=== PATIENT | female | born 1925 | race Caucasian/White ===

== ENCOUNTER 2017-02-18 17:21 | Emergency (ER) | payer MEDICARE, OTHER ==
[~2017-02-18] VITALS: Ht 154.9 cm; Wt 48.0 kg
[~2017-02-18 17:21] MED LIST: ASPI-94 PO; CHOLMIS5 XX; FERR324T4 PO; LOPR100T2; PERC5TAB12 PO
[2017-02-18 17:28] VITALS: BP 198/80; PULSE 88; RESP 18; TEMP 98; O2SAT 99
[2017-02-18] MEDS ORDERED: NAPROXEN 500 MG TAB PO ONE (18:15)
[2017-02-18] MEDS ORDERED: ONDANSETRON HCL 4 MG/5 ML UDC PO ONE (18:15)
[2017-02-18] MEDS ORDERED: TETANUS/DIPHTHERIA TOXOID ADULT 0.5 ML VIAL IM ONE (18:15)
--- NOTE | 2017-02-18 18:15 | PD ---
HPI Chief Complaint: Fall Time Seen by Provider: 18:11 Travel History International Travel<30 days: No Contact w/Intl Traveler<30days: No Traveled to known affect area: No History of Present Illness HPI 89-year-old female presents for evaluation after a mechanical fall. She reports that at 1 PM today she was at a grocery store when she tripped on a rug and fell, landing on the right. There is no head trauma or loss of consciousness. She landed on her knees. She has been ambulatory since then. She is complaining of bilateral anterior knee pain which is aching and worse with movement. She also has a skin tear to the anterior left knee. Her last tetanus vaccination is unknown. She has no other complaints at this time. [facility]LY [facility] Past Medical History Arthritis: Yes (R HAND) Heart Rhythm Problems: Yes Cancer: Yes (SKIN) Cardiovascular Problems: Yes (HX ARRYTHMIA, NO MEDS) Chest Pain: No Congestive Heart Failure: No Cerebrovascular Accident: No Diabetes: No Diminished Hearing: No Glaucoma: No Genitourinary: No Hepatitis: No Hiatal Hernia: No Hypertension: Yes Musculoskeletal: Yes Neurologic: Yes Psychiatric: No Reproductive: No Respiratory: No Thyroid Disease: No ?: Not Menopausal: Yes Past Surgical History Abdominal Surgery: Yes (APPENDECTOMY) Appendectomy: Yes Cardiac Surgery: No Section: Yes Ear Surgery: No Eye Surgery: Yes (BILATERAL CATARACT EXTRACTION, MILTON LASER ) Gynecologic Surgery: Yes (C SECTIONX2) Hysterectomy: Yes Oral Surgery: Yes (TONSILLECTOMY) Pacemaker: No Thoracic Surgery: Yes (R LUNG FLUID REMOVED, ) Tonsillectomy: Yes Other Surgery: Yes Social History Alcohol Use: No Tobacco Use: No Substance Use: No Allergies-Medications (Allergen,Severity, Reaction): Coded Allergies: bee venom protein (honey bee) (Unverified Allergy, Severe, itching and swelling, 01/04/17) Reported Meds & Prescriptions Reported Meds & Active Scripts Active Zofran (Ondansetron HCl) 4 Mg Tab 4 Mg PO Q6HR PRN Reported Ditropan (Oxybutynin Chloride) 5 Mg Tab 5 Mg PO Q8HR [Cholesterol Med] [B/P Med] Namenda (Memantine) 5 Mg Tab 5 Mg PO DAILY Review of Systems Except as stated in HPI: all other systems reviewed are Neg Physical Exam Narrative GENERAL: Well-developed well-nourished female in no acute distress SKIN: Warm and dry. There is a large skin tear to the anterior left knee. There is ecchymosis to the anterior right knee. HEAD: Atraumatic. Normocephalic. EYES: Pupils equal and round. No scleral icterus. No injection or drainage. ENT: No nasal bleeding or discharge. Mucous membranes pink and moist. NECK: Trachea midline. No JVD. CARDIOVASCULAR: Regular rate and rhythm. No murmur appreciated. RESPIRATORY: No accessory muscle use. Clear to auscultation. Breath sounds equal bilaterally. GASTROINTESTINAL: Abdomen soft, non-tender, nondistended. Hepatic and splenic margins not palpable. MUSCULOSKELETAL: Skin as noted above with no obvious bony deformity. There is generalized tenderness to palpation to the anterior left and right knee. The patient intends full flexion and extension of the right knee. She is able to flex and extend her left knee to approximately 90 with mild pain. There is no obvious joint effusion. No tenderness to palpation along the back or pelvis. NEUROLOGICAL: Awake and alert. No obvious cranial nerve deficits. Motor grossly within normal limits. Normal speech. Data Data Last Documented VS Vital Signs Date Time Temp Pulse Resp B/P (MAP) Pulse Ox O2 Delivery O2 Flow Rate FiO2 02/18/17 17:28 98.0 88 18 198/80 (119) 99 Room Air Orders Orders Knee, Complete (4vws) (02/18/17 ) Ice/Cold Pack (02/18/17 18:02) Knee, Complete (4vws) (02/18/17 ) Tetanus/Diphtheria Tox Adult (Tetanus/Di (02/18/17 18:15) Naproxen (Naprosyn) (02/18/17 18:15) Ondansetron Liq (Zofran Liq) (02/18/17 18:15) Wound Care (02/18/17 19:14) MDM Medical Decision Making Medical Screen Exam Complete: Yes Emergency Medical Condition: Yes Medical Record Reviewed: Yes Differential Diagnosis Abrasion, contusion, bursitis, fracture, ligamentous disruption, meniscal disruption Narrative Course X-ray imaging of both nasal be obtained. The patient will be given naproxen at her request as well as a small dose of Zofran for nausea. X-ray imaging reveals no acute abnormalities. At This point in time the plan is to discharge the patient local wound care, Zofran prescription for nausea. Recommend follow-up with primary care physician in 4-5 days for recheck. Diagnosis Primary Impression: Knee abrasion Qualified Codes: S80.212A - Abrasion, left knee, initial encounter Additional Impression: Contusion of knee Qualified Codes: S80.01XA - Contusion of right knee, initial encounter Additional Instructions: Wash the wounds twice daily with soap and water and apply antibiotic cream and bandages. Zofran for nausea. Aleve for pain. Follow-up with primary care physician 4-5 days for recheck. Return for any emergent medical conditions. Med/Other Pt SpecificInfo: Prescription(s) given Scripts Ondansetron (Zofran) 4 Mg Tab 4 MG PO Q6HR Y for NAUSEA OR VOMITING, #20 TAB 0 Refills Prov: Nathaniel Wheeler MD 02/18/17 Disposition: 01 DISCHARGE HOME Condition: Stable Carl Bales Feb 18, 2017 18:15
[2017-02-18] MEDS ORDERED: OXYB5TAB10 PO (18:20)
[2017-02-18] MEDS ORDERED: B/P MED (18:20)
[2017-02-18] MEDS ORDERED: CHOLESTEROL MED (18:20)
[2017-02-18] MEDS ORDERED: NAME5TAB2 PO (18:20)
--- NOTE | 2017-02-18 18:55 | RADRPT ---
EXAM DATE/TIME: 02/18/2017 18:17 [facility] COMPARISON: KNEE LEFT COMPLETE (4VWS), June 17, 2015, 9:28. INDICATIONS : Knee pain due to fall. MEDICAL HISTORY : Hypercholesterolemia. Hypertension Previous broken knees. SURGICAL HISTORY : None. ENCOUNTER: Initial ACUITY: 1 day PAIN SCORE: 8/10 LOCATION: Right FINDINGS: Prominent chondrocalcinosis and heterotopic posterior ossifications similar to prior report. Osseous structures appear intact without evidence for acute bony fracture or focal bony destruction. No signi ficant joint effusion. Soft tissues are within normal limits. CONCLUSION: 1. No acute fracture or dislocation. 2. Stable calcium deposition arthropathy. Andres Fonseca MD on February 18, 2017 at 18:51 Board Certified Radiologist. This report was verified electronically.
--- NOTE | 2017-02-18 18:57 | RADRPT ---
EXAM DATE/TIME: 02/18/2017 18:16 [facility] COMPARISON: KNEE LEFT COMPLETE (4VWS), June 17, 2015, 9:28. INDICATIONS : Knee pain due to fall. MEDICAL HISTORY : Hypercholesterolemia. Hypertension Previous broken knees. SURGICAL HISTORY : None. ENCOUNTER: Initial ACUITY: 1 day PAIN SCORE: 8/10 LOCATION: Left FINDINGS: Redemonstration of chondrocalcinosis and mild heterotopic posterior ossifications. Osseous structures appear intact without evidence for acute bony fracture or focal bony destruction. No significant yumiko nt effusion. Soft tissues are within normal limits. CONCLUSION: 1. No acute fracture or dislocation. 2. Redemonstration of calcium deposition arthropathy. Andres Fonseca MD on February 18, 2017 at 18:54 Board Certified Radiologist. This report was verified electronically.
[2017-02-18] MEDS ORDERED: ZOFR4TAB PO (19:15)
== END 2017-02-18 19:45 | disposition home or self-care (01) ==
LOC: PHEFT 17:21
DX: S80.212A Abrasion, left knee, initial encounter (principal); S80.01XA Contusion of right knee, initial encounter; I10 Essential (primary) hypertension; Z23 Encounter for immunization; Z87.39 Personal history of other diseases of the musculoskeletal system and connective tissue; Z86.79 Personal history of other diseases of the circulatory system; Z85.828 Personal history of other malignant neoplasm of skin; W01.0XXA Fall on same level from slipping, tripping and stumbling without subsequent striking against object, initial encounter; Y92.512 Supermarket, store or market as the place of occurrence of the external cause
CPT/HCPCS: 73564; 90471; 90714